=== PATIENT | male | born 1990 | race Caucasian/White ===

== ENCOUNTER 2022-03-31 20:25 | Emergency (ER) | payer MEDICAID, SELFPAY ==
--- NOTE | ~2022-03-31 | XR_ITS ---
EXAMINATION: XR CHEST CLINICAL INFORMATION: Shortness of breath overdose COMPARISON: None TECHNIQUE: Frontal view of the chest was obtained. FINDINGS: No significant abnormality is noted involving the heart, lungs, mediastinum, bony thorax or soft tissues. XR/XR chest 1V IMPRESSION: Unremarkable examination.
--- NOTE | 2022-03-31 20:29 | ED.OVERDOSE ---
HPI - Overdose General Chief Complaint: ETOH/Substance Use Stated Complaint: Sob Time Seen by Provider: 03/31/22 20:33 Source: patient and EMS Mode of arrival: EMS Limitations: altered mental status History of Present Illness HPI Narrative: 31-year-old male presents via EMS for drug overdose. [place] in an altered mental status. Patient is refusing to answer any questions, yelling and moaning and not making any sense. complaint: accidental overdose Onset (ago): unknown Timing confirmed by: other (Bystander) Intent: other (Cocaine, heroin) Context: Intentional Overdose: drug/ETOH problems Context: Accidental Overdose: wanted to get high Treatments Prior to Arrival: none Related Data Allergies Allergy/AdvReac Type Severity Reaction Status Date / Time No Known Allergies Allergy Unverified 07/07/20 16:08 [No Known Allergies*] Review of Systems Review of Systems: Constitutional: No Fever, No Chills ENT/Mouth: No sore throat, No Rhinorrhea Eyes: No Eye Pain, No Swelling, No Redness Cardiovascular: No Chest Pain, No SOB Respiratory: No Cough, No Sputum Gastrointestinal: No Nausea, No Vomiting, No Diarrhea, No abdominal Pain Genitourinary: No Dysuria, No Hematuria Musculoskeletal: No joint pain, No Myalgias, No Joint Swelling Skin: No Skin Lesions, No rash Neuro: No Weakness, No Numbness, No Loss of Consciousness, No Dizziness, No Headache Psych: Positive cocaine and heroin abuse, No Anxiety, No Depression, No SI/HI/AH/VH Heme/Lymph: No Bruising, No Bleeding,No Lymphadenopathy Endocrine: No Polyuria, No Polydipsia Yes all other systems are reviewed and are negative [facility] Past Medical History Attestation statement: The following information was validated with the patient. Source: old records reviewed Social History Social History Advance Directives: No Advance Directives Information Provided: Yes Physical Exam Vital Signs: Vital Signs: Last Vital Signs Temp 98.7 F 04/01/22 00:24 Pulse 88 04/01/22 00:24 Resp 32 H 04/01/22 00:24 BP 114/84 04/01/22 00:24 Pulse Ox 100 04/01/22 00:24 O2 Del Method 04/01/22 00:24 BMI result Body Mass Index 34.2 Appearance: Disoriented. Intoxicated. Malodorous. Covered in dirt, vomit, feces and urine Eyes: Pupils equal, round and reactive to light. Dilated. ENT: Pharynx normal. Neck: Normal inspection. Neck supple. CVS: Tachycardic heart rate and rhythm. Pulses normal. Respiratory: Tachypneic, moderate respiratory distress. Breath sounds normal. Abdomen: Soft and nontender. Skin: Skin warm and dry. Normal skin color. Normal skin turgor. Extremities: Moves all extremities spontaneously. Neuro: No motor deficit. No sensory deficit. Cranial nerves 2-12 intact. Course Course Course Narrative: 20:20 order for Narcan upon patient arrival. Patient brought in by EMS for evaluation after being [place] in the park for suspected drug overdose. O2 saturation 97%. Patient is falling sleep, given Narcan. After Narcan, patient is screaming, angry that we reversed his drug high, vomiting multiple times, threatening to punch people if we touch him. Patient is maintaining his respiration rate, O2 sat 97% on room air. 21:30 repositioning self as needed, even unlabored respirations, moderately responsive to verbal stimulus. 22:30 repositioning self as needed. Even unlabored respirations. O2 sat 99% on room air. Respiration rate 20 24. 23:30 patient's snoring, arousable. Repositioning self as needed. Even unlabored respirations. O2 sat 100% on room air. Respiration 28.Chest x-ray negative for acute findings requiring emergent intervention. No indication of aspiration. 00:35 patient is sleeping. Easily arousable. Even unlabored respiration. O2 sat 100% on room air. Respiration rate 19. Plan of care is to discharge to either detox facility or [facility] to [place]. Physician observation started at this time. MDM - Overdose Differential Diagnosis Differential diagnosis: Likely cocaine intoxication and drug overdose Medical Records Attestation: I reviewed the patient's medical records. Imaging Data Chest x-ray: Attestation: I personally reviewed and interpreted this imaging study as follows: Radiologist's impression: EXAMINATION: XR CHEST CLINICAL INFORMATION: Shortness of breath overdose COMPARISON: None TECHNIQUE: Frontal view of the chest was obtained. FINDINGS: No significant abnormality is noted involving the heart, lungs, mediastinum, bony thorax or soft tissues. XR/XR chest 1V IMPRESSION: Unremarkable examination. ? Discharge Plan Discharge Clinical Impression: Heroin abuse, Cocaine abuse Patient Disposition: Home, Self-Care Instructions: Opioid Use Disorder (ED), Cocaine Abuse (ED), Polysubstance Abuse (ED) Additional Instructions: Heroin and cocaine will kill you. Please consider detox. Thank you for choosing this emergency department for evaluation. Please follow-up with primary care physician as needed. Return to the emergency department for any new, concerning, or worsening symptoms.
[2022-03-31 20:36] VITALS: BP 106/71; PULSE 110; RESP 22; TEMP 36.3; O2SAT 99; BMI 34.2
--- NOTE | 2022-03-31 20:36 | PC.NURSE ---
Patient given by 4 mcg of intranasal Narcan upon arrival to ED. MD at bedside.
[2022-03-31 20:57] VITALS: BP 116/98; PULSE 99; RESP 25; O2SAT 98
[2022-03-31 21:13] VITALS: BP 96/66
[2022-03-31 21:30] VITALS: BP 98/59; PULSE 81; RESP 22; O2SAT 98
[2022-03-31 22:24] VITALS: BP 101/70; PULSE 75; RESP 30; O2SAT 99
[2022-04-01] VITALS (7 sets, daily range): BP systolic 114–146; BP diastolic 69–92; PULSE 81–92; RESP 18–32; TEMP 37.1; O2SAT 98–100
--- NOTE | 2022-04-01 03:26 | PC.NURSE ---
Patient had a bowel movement, now awakened and washing up at bedside. Patient changed and in no distress. VSS. Will monitor.
--- NOTE | 2022-04-01 09:39 | PC.NURSE ---
PT STILL UNEASY TO AROUSE, CARE TEAM HAS ATTEMPTED TO CONSULT WITH PATIENT FOR DETOX.
--- NOTE | 2022-04-01 13:24 | MHC.RECOVSUP ---
Recovery Support note: Patient is a 31 year old [place] speaking male who presented to [facility] ED on 03/31 via EMS after being found under the influence in the community. This parts data writer met with patient to discuss substance use. Patient was difficult to arouse and minimally engaged in consultation. Patient was accompanied by partner. Patient denied previous overdoses however partner reported he has overdosed in the past. Patient is interested in starting with a methadone clinic however he does not have his ID. Discussed alternative forms of ID with patient. Patient plans to reach out to organizations he has interacted with to see if he can obtain a copy of his ID or some ID equivalent. Patient has tried Suboxone in the past however could not tolerate the taste. Discussed oral tablets with patient. Patient accepted information on the [facility] and [facility] in [place]. Patient declines ATS at this time however accepted information on ATS facilities. Patient provided with contact information for this parts data writer in the event that he has questions after discharge.
[2022-04-01] MEDS: Acetaminophen 325 MG TABLET 650 MG PO (14:01)
[2022-04-01] MEDS: Naloxone HCl Nasal TAKE HOME 4 MG SPRAY NOSTRILALT (14:06)
== END 2022-04-01 14:32 | disposition home or self-care (01) ==
PROVIDERS: Emergency Provider Internal Medicine
DX: F11.10 Opioid abuse, uncomplicated (principal); F14.10 Cocaine abuse, uncomplicated; R06.02 Shortness of breath
CPT/HCPCS: 71045; 99284; 99285